=== PATIENT | female | born 1970 | race Caucasian/White ===

== ENCOUNTER 2021-06-15 20:46 | Inpatient (IN) | payer OTHER ==
[2021-06-15] MEDS ORDERED: LORazepam 2 MG/ML SDV VIAL ONE (21:11)
[2021-06-15] MEDS ORDERED: LORazepam 2 MG/ML SDV VIAL IVPUSH ONE (21:14)
[2021-06-15] MEDS ORDERED: SODIUM CHLORIDE 0.9% 500 ML INFUS.BAG IV ONE (21:15)
[2021-06-15 21:48] LABS: BASO % 0.7 % (0-2.0); EOS % 0.7 % (0-4.5); HEMATOCRIT 39.9 % (32.4-45.2); HEMOGLOBIN 13.9 GM/dL (10.7-15.3); LYMPH % 31.3 % (8-40); MCH 30.8 pg (25.7-33.7); MCHC 34.8 g/dl (32.0-36.0); MEAN CELL VOLUME 88.6 fl (80-96); MONO % 6.8 % (3.8-10.2); NEUT % 60.5 % (42.8-82.8); PLATELET COUNT 272 10^3/uL (134-434); RBC 4.51 M/mm3 (3.60-5.2); RDW 12.8 % (11.6-15.6); WHITE BLOOD COUNT 10.8 K/mm3 (4.0-10.0)
[2021-06-15 22:16] LABS: CHLORIDE 102 mmol/L (98-107); SODIUM 138 mmol/L (136-145)
[2021-06-15 22:19] LABS: ALBUMIN 4.1 g/dl (3.4-5.0); ANION GAP 12 MMOL/L (8-16); BLOOD UREA NITROGEN 8.7 mg/dL (7-18); CO2 25 mmol/L (21-32); GLUCOSE,RANDOM 97 mg/dL (74-106)
[2021-06-15 22:22] LABS: CREATININE 0.7 mg/dL (0.55-1.3); SGOT/AST 11 U/L (15-37); SGPT/ALT 26 U/L (13-61)
[2021-06-15 22:24] LABS: BILIRUBIN,TOTAL 0.5 mg/dL (0.2-1); TOT PROT 7.9 g/dl (6.4-8.2)
[2021-06-15 22:25] LABS: ALK PHOS 62 U/L (45-117)
[2021-06-15 22:38] LABS: LACTIC ACID 2.4 mmol/L (0.4-2.0)
[2021-06-15] MEDS ORDERED: POTASSIUM CHLORIDE TABS 20 MEQ TABLET.ER (FP) PO ONE (22:46)
[2021-06-15 23:43] LABS: URINE APPEARANCE CLEAR; URINE BILIRUBIN NEGATIVE (NEGATIVE); URINE COLOR YELLOW; URINE GLUCOSE (UA) NEGATIVE (NEGATIVE); URINE KETONE NEGATIVE (NEGATIVE); URINE LEUK ESTERASE NEGATIVE (NEGATIVE); URINE NITRITE NEGATIVE (NEGATIVE); URINE PROTEIN NEGATIVE (NEGATIVE); URINE UROBILINOGEN 0.2 mg/dL (0.2-1.0)
[2021-06-15 23:53] LABS: PHOSPHOROUS 2.3 mg/dL (2.5-4.9)
[2021-06-16] MEDS ORDERED: POTASSIUM CHLORIDE TABS 20 MEQ TABLET.ER (FP) PO ONE (01:53)
[2021-06-16] MEDS ORDERED: NAPH,MB-DB/K PH,MBDB POWDER PACKET PO ONE (01:59)
[2021-06-16] MEDS ORDERED: SODIUM CHLORIDE 1,000 ML IV ONE (02:00)
[2021-06-16] MEDS: KCL 10 MEQ IVPB 10 MEQ/100 ML INFUS.BAG IVPB SCH ×2 (02:15→06:14)
[2021-06-16 03:39] VITALS: BMI 25.6
[2021-06-16 08:49] LABS: HEMOGLOBIN 13.3 GM/dL (10.7-15.3); MCH 30.8 pg (25.7-33.7); MCHC 34.1 g/dl (32.0-36.0); MEAN CELL VOLUME 90.3 fl (80-96); MEAN PLT VOLUME 9.2 fl (7.5-11.1); PLATELET COUNT 272 10^3/uL (134-434); RBC 4.31 M/mm3 (3.60-5.2); RDW 13.3 % (11.6-15.6); WHITE BLOOD COUNT 8.6 K/mm3 (4.0-10.0)
[2021-06-16] MEDS: ENOXAPARIN NA (PORCINE) 40 MG/0.4 ML DISP.SYRIN SQ SCH (09:18)
[2021-06-16 09:26] LABS: CALCIUM 8.5 mg/dL (8.5-10.1)
[2021-06-16 09:27] LABS: ALBUMIN 3.7 g/dl (3.4-5.0); BLOOD UREA NITROGEN 6.9 mg/dL (7-18); CREATININE 0.5 mg/dL (0.55-1.3); MAGNESIUM 2.3 mg/dL (1.8-2.4); PHOSPHOROUS 3.7 mg/dL (2.5-4.9)
[2021-06-16 09:28] LABS: BILIRUBIN,TOTAL 0.4 mg/dL (0.2-1); TOT PROT 7.1 g/dl (6.4-8.2)
[2021-06-16 11:57] LABS: METHADONE, UR NEGATIVE (NEGATIVE)
[2021-06-16 11:58] LABS: COCAINE, UR NEGATIVE (NEGATIVE); OPIATES, URI NEGATIVE (NEGATIVE); PHENCYCLIDINE,URINE NEGATIVE (NEGATIVE); URINE AMPHETAMINES NEGATIVE (NEGATIVE); URINE BARBITURATES NEGATIVE (NEGATIVE); URINE BENZODIAZEPINES NEGATIVE (NEGATIVE)
[2021-06-16] MEDS ORDERED: IBUPROFEN 400 MG TABLET (FP) PO ONE (20:44)
[2021-06-16] MEDS ORDERED: ACETAMINOPHEN 325 MG TABLET (FP) PO ONE (21:02)
[2021-06-17 07:51] LABS: BASO % 0.9 % (0-2.0); EOS % 1.4 % (0-4.5); HEMATOCRIT 38.5 % (32.4-45.2); HEMOGLOBIN 13.4 GM/dL (10.7-15.3); LYMPH % 35.5 % (8-40); MCH 31.4 pg (25.7-33.7); MCHC 34.7 g/dl (32.0-36.0); MEAN CELL VOLUME 90.6 fl (80-96); MEAN PLT VOLUME 9.3 fl (7.5-11.1); MONO % 7.7 % (3.8-10.2); NEUT % 54.5 % (42.8-82.8); PLATELET COUNT 268 10^3/uL (134-434); RBC 4.25 M/mm3 (3.60-5.2); RDW 13.4 % (11.6-15.6); WHITE BLOOD COUNT 6.3 K/mm3 (4.0-10.0)
[2021-06-17 08:05] LABS: CALCIUM 8.3 mg/dL (8.5-10.1)
[2021-06-17 08:06] LABS: ALBUMIN 3.5 g/dl (3.4-5.0); BLOOD UREA NITROGEN 7.4 mg/dL (7-18)
[2021-06-17 08:09] LABS: CREATININE 0.6 mg/dL (0.55-1.3)
[2021-06-17 08:10] LABS: BILIRUBIN,TOTAL 0.5 mg/dL (0.2-1); TOT PROT 6.7 g/dl (6.4-8.2)
[2021-06-17] MEDS: ENOXAPARIN NA (PORCINE) 40 MG/0.4 ML DISP.SYRIN SQ SCH (09:26)
[2021-06-17 10:26] VITALS: BP 123/70; PULSE 73; TEMP 98.6
== END 2021-06-17 14:15 | disposition home or self-care (01) | DRG 53 ==
LOC: JER 20:46 → JERBED 06-16 00:03 → J7W 06-16 02:29
PROVIDERS: ADMIT Internal Medicine; ATTEND Internal Medicine
DX: R56.9 Unspecified convulsions (principal); R41.82 Altered mental status, unspecified; J45.909 Unspecified asthma, uncomplicated; K50.90 Crohn's disease, unspecified, without complications; M54.5 Low back pain; E87.2 Acidosis; E86.0 Dehydration; T50.8X5A Adverse effect of diagnostic agents, initial encounter
CPT/HCPCS: 36415; 70450-TC; 80053; 80307; 81003; 82272; 82550; 82962; 83605; 83735; 84100; 84439; 84443; 84484; 84703; 85025; 85027; 93005; 93010; 99285-25; C9803; U0003; U0005

== ENCOUNTER 2023-04-07 13:50 | Emergency (ER) | payer OTHER ==
[2023-04-07 14:00] VITALS: TEMP 97.8; BMI 25.4
[2023-04-07] MEDS ORDERED: ACETAMINOPHEN 1000 MG/100 ML BAG IVPB ONE (14:43)
[2023-04-07] MEDS ORDERED: ONDANSETRON 4 MG/2 ML VIAL IVPUSH ONE (14:43)
[2023-04-07] MEDS ORDERED: ACETAMINOPHEN INJECTION 100 ML IVPB ONE (14:51)
[2023-04-07] MEDS ORDERED: ONDANSETRON 4 MG/2 ML VIAL ONE (14:51)
[2023-04-07 15:25] LABS: EPI CELLS 25 /uL (0-25.1); HYALINE CASTS 0 /uL (0-3.1); PH,URINE 6.5 (5.0-8.0); URINE APPEARANCE CLEAR; URINE BACTERIA 193 /uL (0-1359); URINE BILIRUBIN NEGATIVE (NEGATIVE); URINE COLOR YELLOW; URINE GLUCOSE (UA) NEGATIVE (NEGATIVE); URINE KETONE NEGATIVE (NEGATIVE); URINE LEUK ESTERASE TRACE (NEGATIVE); URINE NITRITE NEGATIVE (NEGATIVE); URINE PROTEIN NEGATIVE (NEGATIVE); URINE RBC 14 /uL (0-23.9); URINE UROBILINOGEN 0.2 mg/dL (0.2-1.0); URINE WBC 13 /uL (0-25.8)
[2023-04-07 15:31] VITALS: BP 110/49; PULSE 63; RESP 17
[2023-04-07 15:33] LABS: POTASSIUM 4.3 mmol/L (3.5-5.1)
[2023-04-07 15:38] LABS: CALCIUM 9.4 mg/dL (8.5-10.1)
[2023-04-07 15:40] LABS: ALBUMIN 3.7 g/dl (3.4-5.0)
[2023-04-07 15:41] LABS: BILIRUBIN,TOTAL 0.3 mg/dL (0.2-1)
[2023-04-07 15:42] LABS: CREATININE 0.7 mg/dL (0.55-1.3)
[2023-04-07 15:44] LABS: TOT PROT 7.3 g/dl (6.4-8.2)
[2023-04-07 17:10] LABS: BASO % 0.7 % (0-2.0); EOS % 1.2 % (0-4.5); HEMATOCRIT 40.2 % (32.4-45.2); HEMOGLOBIN 13.4 GM/dL (10.7-15.3); LYMPH % 37.3 % (8-40); MCH 29.9 pg (25.7-33.7); MCHC 33.4 g/dl (32.0-36.0); MEAN CELL VOLUME 89.5 fl (80-96); MEAN PLT VOLUME 9.6 fl (7.5-11.1); MONO % 8.5 % (3.8-10.2); NEUT % 52.3 % (42.8-82.8); PLATELET COUNT 329 10^3/uL (134-434); RBC 4.49 M/mm3 (3.60-5.2); RDW 13.7 % (11.6-15.6); WHITE BLOOD COUNT 9.6 K/mm3 (4.0-10.0)
[2023-04-07] MEDS ORDERED: KETOROLAC TROMETHAMINE 15 MG/ML VIAL IVPUSH ONE (18:51)
[2023-04-07] MEDS ORDERED: KETOROLAC TROMETHAMINE 15 MG/ML VIAL ONE (18:54)
== END 2023-04-07 19:30 | disposition home or self-care (01) ==
LOC: JER 13:50
PROC: 3E033NZ Introduction of Analgesics, Hypnotics, Sedatives into Peripheral Vein, Percutaneous Approach (ICD-10-PCS; principal; 2023-04-07)
PROC: 3E0333Z Introduction of Anti-inflammatory into Peripheral Vein, Percutaneous Approach (ICD-10-PCS; 2023-04-07)
PROC: 3E033GC Introduction of Other Therapeutic Substance into Peripheral Vein, Percutaneous Approach (ICD-10-PCS; 2023-04-07)
DX: R10.31 Right lower quadrant pain (principal); R10.32 Left lower quadrant pain; N39.0 Urinary tract infection, site not specified; N10 Acute pyelonephritis
CPT/HCPCS: 36415; 74177-TC; 80053; 81003; 85025; 99285-25; Q9967

== ENCOUNTER 2023-04-28 08:54 | Emergency (ER) | payer OTHER ==
[2023-04-28 09:26] VITALS: BP 134/74; PULSE 18; RESP 18; TEMP 98.4; BMI 27.9
[2023-04-28] MEDS ORDERED: ACETAMINOPHEN 1000 MG/100 ML BAG IVPB ONE (10:01)
[2023-04-28] MEDS ORDERED: ACETAMINOPHEN INJECTION 100 ML IVPB ONE (10:53)
[2023-04-28 11:21] LABS: BASO % 1.1 % (0-2.0); EOS % 1.9 % (0-4.5); HEMATOCRIT 41.5 % (32.4-45.2); HEMOGLOBIN 13.8 GM/dL (10.7-15.3); LYMPH % 40.1 % (8-40); MCH 29.6 pg (25.7-33.7); MCHC 33.2 g/dl (32.0-36.0); MEAN PLT VOLUME 8.7 fl (7.5-11.1); NEUT % 45.9 % (42.8-82.8); PLATELET COUNT 306 10^3/uL (134-434); RBC 4.66 M/mm3 (3.60-5.2); RDW 13.7 % (11.6-15.6); WHITE BLOOD COUNT 6.7 K/mm3 (4.0-10.0)
[2023-04-28 11:42] LABS: POTASSIUM 4.7 mmol/L (3.5-5.1)
[2023-04-28 11:44] LABS: CALCIUM 9.6 mg/dL (8.5-10.1)
[2023-04-28 11:45] LABS: ALBUMIN 4.1 g/dl (3.4-5.0); BLOOD UREA NITROGEN 8.8 mg/dL (7-18); MAGNESIUM 2.3 mg/dL (1.8-2.4)
[2023-04-28 11:48] LABS: CREATININE 0.7 mg/dL (0.55-1.3)
[2023-04-28 11:49] LABS: BILIRUBIN,TOTAL 0.3 mg/dL (0.2-1); TOT PROT 7.7 g/dl (6.4-8.2)
[2023-04-28 13:01] LABS: PH,URINE 7.5 (5.0-8.0); URINE APPEARANCE CLEAR; URINE BILIRUBIN NEGATIVE (NEGATIVE); URINE COLOR YELLOW; URINE GLUCOSE (UA) NEGATIVE (NEGATIVE); URINE KETONE NEGATIVE (NEGATIVE); URINE LEUK ESTERASE NEGATIVE (NEGATIVE); URINE NITRITE NEGATIVE (NEGATIVE); URINE PROTEIN NEGATIVE (NEGATIVE); URINE UROBILINOGEN 0.2 mg/dL (0.2-1.0)
== END 2023-04-28 14:37 | disposition home or self-care (01) ==
LOC: JER 08:54
PROC: 3E033NZ Introduction of Analgesics, Hypnotics, Sedatives into Peripheral Vein, Percutaneous Approach (ICD-10-PCS; principal; 2023-04-28)
DX: R10.9 Unspecified abdominal pain (principal); M54.9 Dorsalgia, unspecified; R11.0 Nausea; R53.81 Other malaise; N94.89 Other specified conditions associated with female genital organs and menstrual cycle
CPT/HCPCS: 36415; 74177-TC; 80053; 81003; 83735; 85025; 99285-25; Q9967

== ENCOUNTER 2023-11-12 17:30 | Emergency (ER) | payer OTHER ==
[2023-11-12 17:59] VITALS: BP 147/77; PULSE 67; RESP 18; TEMP 98.3; BMI 28.9
[2023-11-12] MEDS ORDERED: DEXAMETHASONE SOD PHOSPHATE 10 MG/1 ML VIAL IM ONE (19:39)
[2023-11-12] MEDS ORDERED: ALBUTEROL SO4 2.5/IPRATROPIUM 0.5 INH SOL 3 ML VIAL.NEB. NEB ONE ×3 (19:39→20:02)
[2023-11-12] MEDS ORDERED: DEXAMETHASONE SOD PHOSPHATE 10 MG/1 ML VIAL ONE (20:02)
== END 2023-11-12 20:35 | disposition home or self-care (01) ==
LOC: JER 17:30 → JERFT 17:30
PROC: 3E023GC Introduction of Other Therapeutic Substance into Muscle, Percutaneous Approach (ICD-10-PCS; principal; 2023-11-12)
PROC: 3E0F7GC Introduction of Other Therapeutic Substance into Respiratory Tract, Via Natural or Artificial Opening (ICD-10-PCS; 2023-11-12)
DX: R05.9 Cough, unspecified (principal); R09.89 Other specified symptoms and signs involving the circulatory and respiratory systems; J40 Bronchitis, not specified as acute or chronic; Z20.822 Contact with and (suspected) exposure to COVID-19
CPT/HCPCS: 0241U-QW; 71046-TC-FY; 99284-25; J1100

== ENCOUNTER 2023-12-22 20:06 | Emergency (ER) | payer OTHER ==
[2023-12-22 20:34] VITALS: BP 130/76; PULSE 81; RESP 18; TEMP 98.2; BMI 28.9
[2023-12-22] MEDS: METOCLOPRAMIDE HCL INJECTION 10 MG/2 ML VIAL IVPUSH ONE (23:24)
[2023-12-22] MEDS: ACETAMINOPHEN 1000 MG/100 ML BAG IVPB ONE (23:24)
[2023-12-22] MEDS: LACTATED RINGERS SOLUTION 1000 ML INFUS.BAG IV ONE (23:24)
[2023-12-22] MEDS ORDERED: METOCLOPRAMIDE HCL INJECTION 10 MG/2 ML VIAL ONE (23:31)
[2023-12-22] MEDS ORDERED: ACETAMINOPHEN INJECTION 100 ML IVPB ONE (23:31)
[2023-12-22 23:56] LABS: BASO % 0.7 % (0-2.0); EOS % 0.9 % (0-4.5); HEMATOCRIT 41.4 % (32.4-45.2); HEMOGLOBIN 14.2 GM/dL (10.7-15.3); LYMPH % 43.3 % (8-40); MCH 30.7 pg (25.7-33.7); MCHC 34.4 g/dl (32.0-36.0); MEAN CELL VOLUME 89.2 fl (80-96); MEAN PLT VOLUME 8.5 fl (7.5-11.1); NEUT % 47.1 % (42.8-82.8); PLATELET COUNT 346 10^3/uL (134-434); RBC 4.64 M/mm3 (3.60-5.2); RDW 13.7 % (11.6-15.6); WHITE BLOOD COUNT 9.2 K/mm3 (4.0-10.0)
[2023-12-23 00:01] LABS: INR 0.97 (0.83-1.09); PROTHROMBIN TIME (PATIENT) 11.2 SEC (9.7-13.0)
[2023-12-23 00:04] LABS: ACTIVATED PTT 32.9 SECONDS (25.2-36.5)
[2023-12-23 00:43] LABS: POTASSIUM 4.2 mmol/L (3.5-5.1)
[2023-12-23 00:44] LABS: CALCIUM 9.9 mg/dL (8.5-10.1); MAGNESIUM 2.4 mg/dL (1.8-2.4)
[2023-12-23 00:45] LABS: ALBUMIN 3.9 g/dl (3.4-5.0)
[2023-12-23 00:47] LABS: CREATININE 0.7 mg/dL (0.55-1.3); PHOSPHOROUS 4.7 mg/dL (2.5-4.9)
[2023-12-23 00:49] LABS: BILIRUBIN,TOTAL 0.2 mg/dL (0.2-1); TOT PROT 7.8 g/dl (6.4-8.2)
== END 2023-12-23 02:53 | disposition home or self-care (01) ==
LOC: JER 20:06
PROC: 3E033NZ Introduction of Analgesics, Hypnotics, Sedatives into Peripheral Vein, Percutaneous Approach (ICD-10-PCS; principal; 2023-12-22)
PROC: 3E033GC Introduction of Other Therapeutic Substance into Peripheral Vein, Percutaneous Approach (ICD-10-PCS; 2023-12-22)
DX: R20.2 Paresthesia of skin (principal); R22.0 Localized swelling, mass and lump, head; M79.89 Other specified soft tissue disorders; R53.1 Weakness; R51.9 Headache, unspecified; M79.651 Pain in right thigh; M25.512 Pain in left shoulder; M54.2 Cervicalgia; R26.2 Difficulty in walking, not elsewhere classified; R53.83 Other fatigue; Z20.822 Contact with and (suspected) exposure to COVID-19
CPT/HCPCS: 0241U-QW; 36415; 70450-TC; 71045-TC-FY; 73030-TC-LT-FY; 80053; 83735; 84100; 84484; 85025; 85610; 85651; 85730; 86140; 93005; 93010; 96374; 96375; 99285-25; J0131

== ENCOUNTER 2024-05-17 09:44 | Emergency (ER) | payer OTHER ==
[2024-05-17 09:59] VITALS: BP 150/80; PULSE 75; RESP 16; TEMP 98.5; BMI 28.9
[2024-05-17] MEDS ORDERED: METHOCARBAMOL 500 MG TABLET ONE (10:25)
[2024-05-17] MEDS: METHOCARBAMOL 500 MG TABLET PO ONE (10:25)
== END 2024-05-17 11:38 | disposition home or self-care (01) ==
LOC: JER 09:44 → JERFT 09:44
DX: M25.512 Pain in left shoulder (principal); M25.551 Pain in right hip; M79.651 Pain in right thigh; M79.10 Myalgia, unspecified site; W19.XXXA Unspecified fall, initial encounter
CPT/HCPCS: 72170-TC-FY; 73030-TC-LT-FY; 99284-25